=== PATIENT | female | born 1990 | race Caucasian/White ===

== ENCOUNTER 2024-03-09 09:55 | Emergency (ER) | payer BC ==
[~2024-03-09] VITALS: Ht 160 cm; Wt 56.0 kg
[2024-03-09 10:24] VITALS: O2SAT 99
[2024-03-09 11:35] VITALS: BP 107/60; PULSE 85; RESP 15; TEMP 36.94740; O2SAT 99
[2024-03-09] MEDS: ONDANSETRON HCL 4MG/2ML INJ IV ONE (11:56)
[2024-03-09] MEDS: SODIUM CHLORIDE 0.9% 1,000 ML IV ONE (11:56)
[2024-03-09] MEDS ORDERED: ONDA4TAB11 PO (12:54)
== END 2024-03-09 13:15 | disposition home or self-care (01) ==
LOC: ER 09:55
DX: A05.9 Bacterial foodborne intoxication, unspecified (principal); R11.2 Nausea with vomiting, unspecified; R19.7 Diarrhea, unspecified; Z98.890 Other specified postprocedural states
CPT/HCPCS: 99283; 96374; J2405; J7030

== ENCOUNTER 2024-04-08 09:31 | Emergency (ER) | payer BC ==
[~2024-04-08] VITALS: Ht 160 cm; Wt 62.0 kg
[~2024-04-08 09:31] MED LIST: ONDA-239 PO
[2024-04-08 09:43] VITALS: O2SAT 100
[2024-04-08 10:08] LABS: HEMATOCRIT. 41.4 % (36.0-48.0); HEMOGLOBIN. 13.7 g/dL (12.0-16.0); MEAN CORPUSCULAR HEMOGLOBIN 28.6 pg (28.0-32.0); MEAN CORPUSCULAR HGB CONC 33.1 g/dL (31.0-37.0); MEAN CORPUSCULAR VOLUME 86.4 fL (81.0-99.0); PLATELET 417 x1000/uL (130-400); RED BLOOD CELL COUNT 4.79 mill/uL (4.2-5.4); RED CELL DISTRIBUTION WIDTH 14.8 % (11.6-14.6); WHITE BLOOD COUNT 9.2 x1000/uL (4.5-11.0)
[2024-04-08 10:12] LABS: CHLORIDE 103 mEq/L (98-107); POTASSIUM 3.3 mEq/L (3.5-5.1); SODIUM 133 mEq/L (136-145)
[2024-04-08 10:13] LABS: CARBON DIOXIDE 24 mEq/L (21-32)
[2024-04-08 10:14] LABS: CALCIUM 8.6 mg/dL (8.7-10.4)
[2024-04-08 10:17] LABS: DIFFERENTIAL COMMENT 1
[2024-04-08 10:18] LABS: CREATININE 0.7 mg/dL (0.6-1.0); GLUCOSE 107 mg/dL (70-105)
[2024-04-08 10:19] LABS: UREA NITROGEN BLOOD 7 mg/dL (9-23)
[2024-04-08 10:20] LABS: ALANINE AMINOTRANSFERASE < 7 IU/L (10-49); ALBUMIN 4.3 g/dL (3.2-4.8); ASPARTATE AMINOTRANSFERASE 15 IU/L (<34)
[2024-04-08 10:21] LABS: BILIRUBIN DIRECT 0.1 mg/dL (<=3.0); BILIRUBIN TOTAL 0.4 mg/dL (0.1-1.0); PROTEIN TOTAL 7.1 g/dL (6.0-8.3)
[2024-04-08 10:34] LABS: HCG SCREEN NEGATIVE
[2024-04-08] MEDS: ONDANSETRON HCL 4MG/2ML INJ IV NR ×2 (10:38→15:41)
[2024-04-08 12:09] LABS: CLARITY URINE CLOUDY (CLEAR); COLOR URINE YELLOW (YELLOW); GLUCOSE URINE NEGATIVE (NEGATIVE); KETONES URINE 3+ (NEGATIVE); LEUKOCYTE ESTERASE URINE 1+ (NEGATIVE); NITRITE URINE NEGATIVE (NEGATIVE); OCCULT BLOOD URINE 2+ (NEGATIVE); PH URINE 6.5 (4.5-8.0); PROTEIN URINE TRACE (NEGATIVE); SPECIFIC GRAVITY URINE 1.014 (1.005-1.030); UROBILINOGEN URINE 0.2 E.U./dL (0.2-1.0)
[2024-04-08] MEDS: SODIUM CHLORIDE 0.9% 1,000 ML IV ONE (12:14)
[2024-04-08] MEDS: KETOROLAC 30MG/ML VIAL IV NR (12:14)
[2024-04-08 12:28] LABS: BACTERIA URINE 2+; RBC URINE 0-2 /hpf (0-2); SQUAMOUS EPITHELIAL CELL URINE 2+ /lpf (RARE/1+); YEAST URINE NONE SEEN
[2024-04-08] MEDS: HYDROCODONE/ACETAMINOPHEN 5/325MG TABLET PO STA (12:30)
[2024-04-08] MEDS: FAMOTIDINE 20MG/2ML VIAL IV ONE (12:34)
[2024-04-08] MEDS: ACETAMINOPHEN 325MG TABLET PO STA (12:36)
[2024-04-08] MEDS ORDERED: IOHEXOL-300 100 ML BOTTLE ONE (13:20)
[2024-04-08] MEDS ORDERED: CEFTRIAXONE SODIUM 1G VIAL IM NR (14:15)
[2024-04-08] MEDS: CEFTRIAXONE 1GM/50ML 50 ML IV ONE (14:51)
[2024-04-08 15:24] LABS: PLATELET ESTIMATE SLIGHTLY INCREASED
[2024-04-08] MEDS ORDERED: ONDA4TAB50 PO (15:36)
[2024-04-08] MEDS ORDERED: CIPR500T5 MT (15:36)
[2024-04-08] MEDS ORDERED: FAMO20TA8 MT (15:36)
[2024-04-08] MEDS ORDERED: ACET-2708 MT (15:36)
[2024-04-08 16:36] VITALS: BP 122/56; PULSE 81; RESP 18; TEMP 36.72516; O2SAT 98
== END 2024-04-08 16:39 | disposition home or self-care (01) ==
LOC: ER 09:31
DX: K52.9 Noninfective gastroenteritis and colitis, unspecified (principal); D25.9 Leiomyoma of uterus, unspecified; N39.0 Urinary tract infection, site not specified; Z98.890 Other specified postprocedural states
CPT/HCPCS: 80076; 80048; 81003; 81025; 84703; 83690; 85025; 87086; 36415; 74177; 96361; 96365; 96366; 96375; 96376; 99285; Q9967; J0696; J3490; J2405; Z7610

== ENCOUNTER 2024-11-01 17:33 | Emergency (ER) | payer BC ==
[~2024-11-01] VITALS: Ht 165.1 cm; Wt 64.0 kg
[~2024-11-01 17:33] MED LIST changes: +ACET-2708 MT; +CIPR500T5 MT; +FAMO20TA8 MT; +ONDA4TAB50 PO
[2024-11-01 17:45] VITALS: O2SAT 100
[2024-11-01 17:51] VITALS: BP 112/71; PULSE 87; RESP 18; TEMP 36.8; O2SAT 98
[2024-11-01 18:26] LABS: BASOPHILS % 0.3 % (0.0-2.0); EOSINOPHILS % 0.2 % (0.0-5.0); HEMATOCRIT. 36.5 % (36.0-48.0); HEMOGLOBIN. 11.5 g/dL (12.0-16.0); LYMPHOCYTES % 10.1 % (20.0-50.0); MEAN CORPUSCULAR HEMOGLOBIN 26.2 pg (28.0-32.0); MEAN CORPUSCULAR HGB CONC 31.5 g/dL (31.0-37.0); MEAN CORPUSCULAR VOLUME 83.2 fL (81.0-99.0); MEAN PLATELET VOLUME 8.1 fl (7.4-10.4); MONOCYTES % 9.3 % (2.0-8.0); NEUTROPHILS % 80.1 % (40.0-76.0); PLATELET 556 x1000/uL (130-400); RED BLOOD CELL COUNT 4.38 mill/uL (4.2-5.4); RED CELL DISTRIBUTION WIDTH 17.1 % (11.6-14.6); WHITE BLOOD COUNT 11.6 x1000/uL (4.5-11.0)
[2024-11-01 18:34] LABS: CHLORIDE 107 mEq/L (98-107); POTASSIUM 4.4 mEq/L (3.5-5.1); SODIUM 138 mEq/L (136-145)
[2024-11-01 18:35] LABS: CARBON DIOXIDE 25 mEq/L (21-32)
[2024-11-01 18:36] LABS: CALCIUM 8.5 mg/dL (8.7-10.4)
[2024-11-01 18:40] LABS: CREATININE 0.6 mg/dL (0.6-1.0); GLUCOSE 128 mg/dL (70-105)
[2024-11-01 18:41] LABS: UREA NITROGEN BLOOD 11 mg/dL (9-23)
[2024-11-01 18:42] LABS: ALANINE AMINOTRANSFERASE < 7 IU/L (10-49); HCG SCREEN NEGATIVE
[2024-11-01 18:43] LABS: ASPARTATE AMINOTRANSFERASE < 8 IU/L (<34); BILIRUBIN DIRECT < 0.1 mg/dL (<=3.0); BILIRUBIN TOTAL 0.4 mg/dL (0.1-1.0)
[2024-11-01] MEDS ORDERED: HYDR-4001 MT (21:18)
[2024-11-01] MEDS ORDERED: P20 MT (21:18)
[2024-11-01] MEDS ORDERED: LEVO-65 MT (21:18)
[2024-11-02] MEDS ORDERED: IOHEXOL-300 100 ML BOTTLE ONE (00:47)
== END 2024-11-01 21:48 | disposition home or self-care (01) ==
LOC: ER 17:33
DX: K51.911 Ulcerative colitis, unspecified with rectal bleeding (principal); R10.32 Left lower quadrant pain; Z79.899 Other long term (current) drug therapy; Z98.890 Other specified postprocedural states
CPT/HCPCS: 99285; 74177; 80076; 80048; 84703; 83690; 85025; 86850; 86900; 86901; 36415; Q9967 ×2